=== PATIENT | male | born 1955 | race Caucasian/White ===

== ENCOUNTER 2016-12-07 09:13 | Outpatient (CLI) | payer BC ==
[~2016-12-07 09:13] MED LIST: AMLODIPINE BESY10 MG PO; ATORVASTATIN CA40 MG PO; IBUPROFEN600 MG PO; LISINOPRIL10 MG PO; NEURONTIN300 MG PO; OXYCONTIN CR15 MG PO; PROAIR HFA IN; TAMSULOSIN HCL0.4 MG PO
--- NOTE | 2016-12-07 14:08 | DIAGNOSTIC IMAGING REPORT ---
PROCEDURE: XR UPPER GI WITH AIR INDICATION: Recent episode of severe pain with hematemesis. Reported history of esophageal dilation. TECHNIQUE: Double contrast study. Fluoroscopy time, 6.3 minutes; 3248.7 mGy. 60 fluoroscopic images (including cinefluoroscopy). COMPARISON: None. FINDINGS: There is moderate to marked short segment narrowing of the distal esophagus (6 mm), with intermittent tertiary contractions and esophageal spasm. In addition, findings suggest nodular mucosal thickening at the gastroesophageal junction (10 mm). The rest the esophagus is normal. There is mild generalized mucosal thickening of the folds of the stomach and duodenum. There is no evidence of reflux on this study. Stomach and duodenum are normal. Radiopaque density overlying the thoracolumbar vertebral bodies consistent with vertebroplasty. IMPRESSION: 1. Moderate to marked short segment narrowing of the distal esophagus (6 mm) with intermittent tertiary contractions and esophageal spasm. In addition, findings suggest a 10 mm nodule of the gastroesophageal junction. Consider underlying mass (polyp, varix, neoplasm). Endoscopic correlation is recommended. 2. Normal stomach and duodenum. 3. Findings discussed with the patient and called to Dr. Stroud.
--- NOTE | 2016-12-07 18:02 | DIAGNOSTIC IMAGING REPORT ---
PROCEDURE: MR UPPER EXTREMITY W/O CONT-RT INDICATION: Severe right shoulder pain with "snapping." TECHNIQUE: PD and FAT-SAT PD, axial, and coronal-oblique images. PD and STIR sagittal-oblique images. COMPARISON: None. FINDINGS: Moderate caudal and positive angulation of type III acromion, and moderate arthritic changes of the right acromioclavicular joint. Overall, these changes result in moderate to severe impingement. There is no evidence of coracoid impingement (12 mm). There is severe atrophic tendinosis of the lateral and ventral rotator cuff with probable linear full-thickness tear of the supraspinatus segment (coronal fat sat PD image 9). Associated small amount of fluid in the subacromial/subdeltoid bursa. There is tendinosis of the proximal biceps tendon with mild medial subluxation (suggests partial thickness intrasubstance tear of the subscapularis tendon - - possible "hidden" lesion). There is severe chondromalacia and osteoarthritic changes of the right glenohumeral joint with peripheral osteophytes. In addition, there is a relatively large 1.5 x 0.6 cm loose body in the anterior inferior glenohumeral joint. These changes are associated with attenuation of the cartilaginous labrum, no definite evidence of tear. There is abnormal signal and edema in the supraspinatus and infraspinatus muscles with mild atrophic changes. IMPRESSION: 1. Moderate caudal / positive angulation of type III acromion, and moderate arthritic changes of the right acromioclavicular joint results in moderate to severe impingement. 2. Severe atrophic tendinosis of the rotator cuff with probable full-thickness tear of the lateral rotator cuff, and partial thickness intrasubstance tear of the subscapularis tendon (with slight medial subluxation of the biceps tendon - - possible "hidden lesion"). 3. Associated small fluid in the subacromial/subdeltoid bursa. 4. 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 5. Abnormal signal and atrophic changes in the supraspinatus and infraspinatus muscles suggests muscle strain, although denervation myositis might also be considered.
== END 2016-12-07 23:00 ==
LOC: MRI SRH 09:13 → XR SRH 10:30 → MRI SRH 23:00
DX: M75.41 Impingement syndrome of right shoulder (principal); M75.101 Unspecified rotator cuff tear or rupture of right shoulder, not specified as traumatic; M25.411 Effusion, right shoulder; M94.211 Chondromalacia, right shoulder; K22.2 Esophageal obstruction

== ENCOUNTER 2017-01-13 10:32 | Day surgery (SDC) | payer BC ==
[~2017-01-13] VITALS: Ht 165.1 cm; Wt 66.2 kg
[2017-01-13] MEDS ORDERED: DEPO-TESTOS200 MG/ML (10:59)
--- NOTE | 2017-01-13 15:04 | Operative Report ---
Operative Report Date of Surgery: 01/13/17 Preoperate Diagnosis: dysphagia Postoperative Diagnosis: esophageal stricture Surgeon: Flex Kramer MD Procedure Performed: egd with balloon dilation Anesthesia: tivg Indications: 61 year old with dysphagia and stenosis on ugi. Surgical Technique: Pt. was taken to the endo suite and placed in the left lateral decubitus position. The endoscope was advanced into the duodenum. A gastric biopsy was taken for katja test. The stomach and duodeum looked normal. A retroflexed and anteflexed view of the GE junction showed reactive changes but no obvious neoplasm. Multiple biopsies were taken and a dilating balloon was used to dilate to 18mm. The pt. left in good condition.
--- NOTE | 2017-01-13 15:06 | Provider's Discharge Care Plan ---
Problem, Goal, Plan Problem List 1. Esophageal stricture
--- NOTE | 2017-01-13 15:06 | Provider's Discharge Care Plan ---
Problem, Goal, Plan Problem List 1. Esophageal stricture
[2017-01-13 15:41] VITALS: BP 125/82
== END 2017-01-13 15:50 | disposition home or self-care (01) ==
LOC: OR SRH 10:32 → SCU SRH 10:32 → OR SRH 12:00
PROVIDERS: Surgery
PROC: 0D758ZZ Dilation of Esophagus, Via Natural or Artificial Opening Endoscopic (ICD-10-PCS; principal; 2017-01-13 12:00)
PROC: 0DB38ZX Excision of Lower Esophagus, Via Natural or Artificial Opening Endoscopic, Diagnostic (ICD-10-PCS; principal; 2017-01-13 12:00)
DX: K22.2 Esophageal obstruction (principal); K22.70 Barrett's esophagus without dysplasia; K21.9 Gastro-esophageal reflux disease without esophagitis; I10 Essential (primary) hypertension; Z72.0 Tobacco use
CPT/HCPCS: 29229; 29240; 50004; 60001; 82730; 83526; 90705

== ENCOUNTER 2017-01-24 15:43 | Outpatient (CLI) | payer BC ==
[~2017-01-24 15:43] MED LIST changes: +DEPO-TESTOS200 MG/ML
--- NOTE | 2017-01-24 16:26 | DIAGNOSTIC IMAGING REPORT ---
PROCEDURE: XR HIP BILATERAL INDICATION: L HIP PX TECHNIQUE: AP view of the pelvis and hips with lateral view of each hip. COMPARISON: None. FINDINGS: RIGHT HIP: Normal mineralization. No fracture. Normal bony alignment. Mild to moderate degenerative change at the hip joint including superior joint space loss, acetabular sclerosis, and mild marginal irregularity along the superior acetabulum and superior femoral head. Tiny adjacent acetabular calcifications. LEFT HIP: Normal mineralization. No acute fracture. There is some buttressing along the medial aspect of the left acetabulum suggestive of remote, healed acetabular fracture. Normal bony alignment. Moderate degenerative change at the hip joint including slight flattening of the femoral head shape, moderate to large superior femoral head marginal spurring, decreased superior joint space loss and acetabular spur formation. No unusual adjacent calcifications. PELVIS: Normal mineralization. Pelvic rings are intact. No fractures. Normal alignment. The visible bowel gas pattern and pelvic soft tissues appear normal. Surgical staple ring and clips in the midline pelvis of prior bowel surgery. IMPRESSION: 1. Mild to moderate bilateral degenerative changes in the hip joints. 2. There is mild flattening of the left femoral head shape and marginal spurring. This morphology may predispose to pincer type femoral acetabular impingement. 3. There is morphology suggestive of remote, healed left acetabular fracture.
== END 2017-01-24 23:00 ==
LOC: XR SRH 15:43
DX: M16.0 Bilateral primary osteoarthritis of hip (principal)